=== PATIENT | male | born 1975 | race Caucasian/White ===

== ENCOUNTER → 2019-04-28 13:49 | Outpatient (CLI) | payer MEDICAID ==
--- NOTE | ~2019-04-28 | ST ---
PATIENT:KIRSTEN VILLARREAL MEDICAL RECORD: [id number] SEX: M LOCATION:[facility] ORDER #: ADMISSION DATE: 04/28/19 AGE OF PATIENT: 43 REFERRING PHYSICIAN: INTERPRETING PHYSICIAN: CHATA THIBODEAUX MD DATE OF SERVICE: 04/28/2019 PROCEDURE: Treadmill stress test. TECHNIQUE: Baseline ECG is normal. Exercise for 10 minutes on Jan protocol. Maximum heart rate 137 beats per minute, greater than 85% maximum predicted. No ECG changes for ischemia. No symptoms of ischemia. Normal blood pressure response to exercise. No arrhythmias noted. Good exercise tolerance for age. TRANSINT:[id number] Voice Confirmation ID: [id number] DOCUMENT ID: [id number] CHATA THIBODEAUX MD CC: [id number] DICTATION DATE: 05/01/19 1258 THEATER MANAGER: 05/01/192121 [facility] CLI 04/28/19 [facility] [address] [place] [address]
== END | disposition home or self-care (01) ==
LOC: D.HCCARDIO 13:49
PROVIDERS: ATTEND Internal Medicine Interventional Cardiology
DX: R07.9 Chest pain, unspecified (principal)